=== PATIENT | male | born 1985 | race Two or more races ===

== ENCOUNTER 2025-10-15 09:00 | Day surgery (SDC) | payer MEDICAID, SELFPAY ==
[2025-10-14 07:05] VITALS: BMI 30.7
[2025-10-14 08:25] LABS: Basophils # (Auto) 0.0 Thou/mm3 (0.0-0.2); Basophils % (Auto) 1 % (0-2.5); Eosinophils # (Auto) 0.3 Thou/mm3 (0.0-0.5); Eosinophils % (Auto) 4 % (0-10); Hematocrit 45.0 % (41.0-53.0); Hemoglobin 14.5 g/dL (13.5-16.0); Immature Granulocytes Auto 0.03 Thou/mm3 (0.00-0.00); Lymphocytes # (Auto) 1.9 Thou/mm3 (1.0-4.8); Lymphocytes % (Auto) 32 % (10-50); Mean Corpuscular HGB Conc 32.2 g/dl (31.0-37.0); Mean Corpuscular Hemoglobin 28.8 pg (25.0-35.0); Mean Corpuscular Volume 89 fL (80-100); Monocytes # (Auto) 0.6 Thou/mm3 (0.0-0.8); Monocytes % (Auto) 10 % (0-12); Neutrophils # (Auto) 3.2 Thou/mm3 (1.8-7.7); Neutrophils % (Auto) 53 % (37-80); Nucleated Red Blood Cell # 0.00 Thou/mm3 (0.00-0.00); Nucleated Red Blood Cell % 0 /100 WBC (0); Platelet Count 253 Thou/mm3 (140-440); RDW Standard Deviation 41.6 fL (35.1-43.9); Red Blood Count 5.04 Miln/mm3 (4.50-5.90); White Blood Count 6.0 Thou/mm3 (3.8-10.6)
[2025-10-14 08:43] LABS: Anion Gap 5 (7-16); BUN/Creatinine Ratio 10 Ratio (12-20); Blood Urea Nitrogen 10 mg/dL (9-23); Calcium 9.0 mg/dL (8.3-10.6); Carbon Dioxide 30.6 mMol/L (20.0-31.0); Chloride 106 mMol/L (98-107); Creatinine (Component) 1.0 mg/dL (0.6-1.3); Estimated Creatinine Clearance 112.6 mL/min (>60); Glucose 99 mg/dL (74-106); Osmolality,Calculated 282 (275-295); Potassium 4.1 mMol/L (3.4-5.1); Sodium 142 mMol/L (136-145); eGFR > 60 See Note
[2025-10-15] VITALS (9 sets, daily range): BP systolic 99–120; BP diastolic 59–82; PULSE 55–72; RESP 12–18; TEMP 36.4–36.7; O2SAT 96–100; BMI 31.0
--- NOTE | 2025-10-15 10:08 | SUR.PREOP ---
Patient expressed gratitude for prayer before their procedure.
--- NOTE | 2025-10-15 12:12 | SUR.PHASEI ---
1212 patient arrived to recovery resting comfortably in [facility], on oxygen 8L via oxy mask with a nasal airway in place, breathing unlabored, vital signs stable, dressing intact to groin; dissolvable sutures, ointment, telfa, fluffs, scrotal support, no bleeding noted, report received from Estevan SAUNDERS and Luis Enrique GAVIN
--- NOTE | 2025-10-15 12:24 | ESHP_ITS ---
RE: LASHA NOLAN : 1985 DATE OF ADMISSION: 10/15/2025 HISTORY OF PRESENT ILLNESS: A 39-year-old gentleman desiring bilateral vasectomy for family planning. He has 2 children. 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 ALLERGIES: NONE KNOWN. PAST MEDICAL HISTORY: No history of diabetes mellitus. No history of hypertension. MEDICATIONS: Keppra. PHYSICAL EXAMINATION: Clinical examination reveals: HEENT: Normal. Neck: Supple. Lungs: Clear. Heart sounds: Normal. Abdomen: Soft without any organomegaly. No guarding. No rigidity. Extremities: Normal. IMPRESSION: Patient desiring bilateral vasectomy for family planning. PLAN: Bilateral vasectomy. Planned procedure, risks and complications have been discussed with the patient. Patient has understood them and agreed to proceed. DT: 10:03:00 TT: 10:21:00 Ref: [id number] - TID: [id number]
--- NOTE | 2025-10-15 13:20 | SUR.PHASEII ---
Pt. meets criteria for discharge, VSS, no c/o pain or nausea at this time, tolerating oral fluids. Discharge instructions provided to pt. and pt.'s fiance, verbalized understanding, IV discontinued without complications, dressing to scrotum CDI, scrotal support in place, educated on use of ice to reduce pain and swelling. Pt. escorted to vehicle via w/c with all of belongings by staff.
--- NOTE | 2025-10-15 18:23 | ESOP_ITS ---
RE: LASHA NOLAN : 1985 DATE OF OPERATION: 10/15/2025 PREOPERATIVE DIAGNOSIS: Patient desiring bilateral vasectomy for family planning. POSTOPERATIVE DIAGNOSIS: Patient desiring bilateral vasectomy for family planning. PROCEDURE PERFORMED: Bilateral vasectomy. ANESTHESIA: General by Mr. Estevan Frost CRNA. INDICATION: Patient is a 40-year-old gentleman who desired bilateral vasectomy for family planning. He was seen in the office. Patient was given the consent form and planned procedure, risks, and complications have been discussed with the patient. Patient understood them and agreed to proceed. DESCRIPTION OF PROCEDURE: After the patient was brought to the operating table under adequate general anesthesia, he was placed in supine position. Parts were prepped and draped in the usual fashion. Right vasectomy was done first. The vas was made subcutaneous. A small transverse incision of 0.5 cm was made over the vas deferens. Skin and subcutaneous tissues were incised. The vas deferens was dissected from surrounding structures. Two clamps were placed on the vas deferens and the segment between the clamps was excised. The ends of the vas deferens were fulgurated and ligated using 3-0 chromic catgut sutures. Complete hemostasis was obtained. The skin wound was closed with interrupted sutures of 3-0 chromic catgut. In a similar fashion, the left-sided vasectomy was done. A local anesthetic was injected at the site of skin. Sterile dressing was then applied. Patient was then transferred to the recovery room in a satisfactory condition, having tolerated the entire procedure well. Sponge count and needle count at the end of the procedure was found to be correct. Estimated blood loss was about 2 mL. DT: 12:16:00 TT: 18:22:00 Ref: [id number] - TID: [id number]
== END 2025-10-15 13:22 | disposition home or self-care (01) ==
PROVIDERS: PCP Family Medicine; Referring Provider Surgery; Visit Provider Surgery
PROC: (CPT 55250; principal; 2025-10-15 11:00)
DX: Z30.2 Encounter for sterilization (principal)
CPT/HCPCS: 55250; 36415; 80048; 85025; A4649; J0131; J0690; J2250; J2704; J3010; J3490; L8330; A9270